=== PATIENT | female | born 1975 | race Two or more races ===

== ENCOUNTER 2021-11-10 17:00 | Emergency (ER) | payer OTHER | END 2021-11-10 18:34 | disposition home or self-care (01) | LOC: MW.ED 17:00 | DX: S09.90XA Unspecified injury of head, initial encounter (principal); R07.89 Other chest pain; M25.562 Pain in left knee; V49.40XA Driver injured in collision with unspecified motor vehicles in traffic accident, initial encounter; Y92.410 Unspecified street and highway as the place of occurrence of the external cause; V67.5XXA Driver of heavy transport vehicle injured in collision with fixed or stationary object in traffic accident, initial encounter | CPT/HCPCS: 70450; 70450-26; 71045; 71045-26; 72125; 72125-26; 96374; 99284; 99284-25 ==